=== PATIENT | female | born 1980 | race Caucasian/White ===

== ENCOUNTER 2016-02-28 12:40 | Emergency (ER) | payer OTHER ==
[2016-02-28 12:45] VITALS: BP 124/77
--- NOTE | 2016-02-28 15:19 | RAD ---
Indication: Frequent urination; fever. Comparison: None. Technique: Transvaginal pelvic ultrasound. Report: Unremarkable anteverted 6.7 x 2.6 x 4.9 cm uterus with 3.1 mm endometrium. Negative for significant free pelvic fluid. 2.7 x 1.4 x 2.3 cm RIGHT ovary with documented vascular flow is remarkable for small follicles only. 2.3 x 1.0 x 1.4 cm LEFT ovary with documented vascular flow is remarkable for small follicles only. No visualized extra ovarian adnexal region lesions evident. IMPRESSION: Negative pelvic ultrasound.
[2016-02-28 15:51] LABS: Urine Bacteria Absent (Absent); Urine Bilirubin Negative (Negative); Urine Glucose Negative (Negative); Urine Nitrite Negative (Negative)
[2016-02-28 16:21] LABS: Hematocrit 40 % (35-47); Hemoglobin 13.5 g/dl (12.0-16.0); Mean Corpuscular HGB Conc 34 g/dl (31-36); Mean Corpuscular Hemoglobin 29 pg (27-31); Mean Corpuscular Volume 87 fL (80-97); Mean Platelet Volume 9 um3 (7.4-10.4); Red Blood Count 4.61 10^6/ul (4.0-5.4); Red Cell Distribution Width 13 % (10.5-15); White Blood Count 7.4 10^3/ul (3.5-10.8)
[2016-02-28 16:34] LABS: ALT 8 U/L (7-52); AST 12 U/L (13-39); Albumin 3.9 g/dL (3.2-5.2); Alkaline Phosphatase 36 U/L (34-104); Anion Gap 5 mmol/L (2-11); Blood Urea Nitrogen 9 mg/dL (6-24); C Reactive Protein 11.64 mg/L (< 5.00); CO2 Carbon Dioxide 26 mmol/L (22-32); Calcium 9.1 mg/dL (8.6-10.3); Chloride 105 mmol/L (101-111); EGFR African American 123.8 (>60); EGFR Non-African American 96.3 (>60); Globulin 3.2 g/dL (2-4); Glucose 124 mg/dL (70-100); Potassium 3.5 mmol/L (3.5-5.0); Sodium 136 mmol/L (133-145); Total Protein 7.1 g/dL (6.4-8.9)
--- NOTE | 2016-02-28 17:50 | ED ---
Progress - Progress Note Progress Note: RX FOR CIPRO X 7 DAYS WRITTEN. RESULTS DISCUSSED WITH PATIENT. DX URINARY FREQUENCY. DISCHARGE HOME STABLE. - Results/Orders Results/Orders: Transvaginal US read by radiologist: IMPRESSION: Negative pelvic ultrasound. Course/Dx - Course Course Of Treatment: RESULTS DISCUSSED WITH PATIENT. RX FOR CIPRO X 7 DAYS WRITTEN. PT TO F/U WITH UROLOGY IN 1 WEEK. DISCHARGE HOME STABLE. - Diagnoses Provider Diagnoses: Urinary frequency
--- NOTE | 2016-02-29 10:28 | ED ---
Christofer Flaherty Adam, scribed for Alexx Carranza MD on 02/28/16 at 1410 . GI/ HPI - HPI Summary HPI Summary: Pt is a 35 year old female presenting with urgency and frequency of urination. She also c/o chills and low back pain. She states that she got a UTI over 1 month ago and was given Cipro by her PCP which improved her symptoms temporarily. She came to the ED because the symptoms have returned and have persisted. LMP was 2 months ago but she is on control and has had a recent negative test. She denies any discharge. - History of Current Complaint Chief Complaint: EDUrogenitalProblems Time Seen by Provider: 02/28/16 14:03 Stated Complaint: POSSIBLE UTI Hx Obtained From: Patient Onset/Duration: Started Weeks Ago, Atraumatic, Still Present Timing: Intermittent Severity: Moderate Current Severity: Moderate Pain Intensity: 1 Associated Signs and Symptoms: Positive: Back Pain, Chills, UTI Symptoms - Frequency, urgency Additional Signs & Symptoms: Negative: Vaginal Discharge Aggravating Factor(s): Nothing Alleviating Factor(s): Medication - Cipro PMH/Surg Hx/FS Hx/Imm Hx Infectious Disease History: No Infectious Disease History: Denies: Traveled Outside the [place] in Last 30 Days - Social History Occupation: Employed Full-time Lives: Alone Review of Systems Positive: Chills Positive: frequency, urgency Positive: Myalgia - Back All Other Systems Reviewed And Are Negative: Yes Physical Exam Triage Information Reviewed: Yes Vital Signs On Initial Exam: Initial Vitals Temp Pulse Resp BP Pulse Ox 97.8 F 72 16 124/77 100 02/28/16 12:43 02/28/16 12:43 02/28/16 12:43 02/28/16 12:43 02/28/16 12:43 Vital Signs Reviewed: Yes Appearance: Positive: Well-Appearing, No Pain Distress Skin: Positive: Warm, Skin Color Reflects Adequate Perfusion, Dry Head/Face: Positive: Normal Head/Face Inspection Eyes: Positive: Normal ENT: Positive: Normal ENT inspection Neck: Positive: Supple, Nontender Respiratory/Lung Sounds: Positive: Clear to Auscultation, Breath Sounds Present Cardiovascular: Positive: RRR Abdomen Description: Positive: Nontender, Soft Bowel Sounds: Positive: Present Musculoskeletal: Positive: Normal Neurological: Positive: Normal Psychiatric: Positive: Normal, Affect/Mood Appropriate Diagnostics - Vital Signs Vital Signs Temp Pulse Resp BP Pulse Ox 02/28/16 12:43 97.8 F 72 16 124/77 100 - Laboratory Lab Results: Lab Results 02/28/16 02/28/16 02/28/16 Range/Units 13:46 16:00 16:00 WBC 7.4 (3.5-10.8) 10^3/ul RBC 4.61 (4.0-5.4) 10^6/ul Hgb 13.5 (12.0-16.0) g/dl Hct 40 (35-47) % MCV 87 (80-97) fL MCH 29 (27-31) pg MCHC 34 (31-36) g/dl RDW 13 (10.5-15) % Plt Count 259 (150-450) 10^3/ul MPV 9 (7.4-10.4) um3 Neut % (Auto) 65.3 (38-83) % Lymph % (Auto) 28.4 (25-47) % [place] % (Auto) 5.4 (1-9) % Eos % (Auto) 0.6 (0-6) % Baso % (Auto) 0.3 (0-2) % Absolute Neuts (auto) 4.8 (1.5-7.7) 10^3/ul Absolute Lymphs (auto) 2.1 (1.0-4.8) 10^3/ul Absolute Monos (auto) 0.4 (0-0.8) 10^3/ul Absolute Eos (auto) 0 (0-0.6) 10^3/ul Absolute Basos (auto) 0 (0-0.2) 10^3/ul Absolute Nucleated RBC 0 10^3/ul Nucleated RBC % 0 Sodium 136 (133-145) mmol/L Potassium 3.5 (3.5-5.0) mmol/L Chloride 105 (101-111) mmol/L Carbon Dioxide 26 (22-32) mmol/L Anion Gap 5 (2-11) mmol/L BUN 9 (6-24) mg/dL Creatinine 0.69 (0.51-0.95) mg/dL Est GFR ( Amer) 123.8 (>60) Est GFR (Non-Af Amer) 96.3 (>60) BUN/Creatinine Ratio 13.0 (8-20) Glucose 124 H (70-100) mg/dL Calcium 9.1 (8.6-10.3) mg/dL Total Bilirubin 0.30 (0.2-1.0) mg/dL AST 12 L (13-39) U/L ALT 8 (7-52) U/L Alkaline Phosphatase 36 (34-104) U/L C-Reactive Protein 11.64 H (< 5.00) mg/L Total Protein 7.1 (6.4-8.9) g/dL Albumin 3.9 (3.2-5.2) g/dL Globulin 3.2 (2-4) g/dL Albumin/Globulin Ratio 1.2 (1-3) Beta HCG, Quant < 0.60 mIU/mL Urine Color Straw Urine Appearance Clear Urine pH 7.0 (5-9) Ur Specific [employer] 1.006 L (1.010-1.030) Urine Protein Negative (Negative) Urine Ketones Negative (Negative) Urine Blood Negative (Negative) Urine Nitrate Negative (Negative) Urine Bilirubin Negative (Negative) Urine Urobilinogen Negative (Negative) Ur Leukocyte Esterase 2+ H (Negative) Urine WBC (Auto) Trace(0-5/hpf) (Absent) Urine RBC (Auto) Trace(0-2/hpf) (Absent) Ur Squamous Epith Cells Present H (Absent) Urine Bacteria Absent (Absent) Urine Glucose Negative (Negative) Result Diagrams: 02/28/16 16:00 02/28/16 16:00 Lab Statement: Any lab studies that have been ordered have been reviewed, and results considered in the medical decision making process. GIGU Course/Dx - Course Course Of Treatment: She is stable at change of shift awaiting labs to help R/O pyelonephritis and U/S to R/O a mechanical reason for frequency and urgency without dysuria, vaginal D/C or other symptoms and with two negative urine C&S' s previously. - Diagnoses Provider Diagnoses: Urinary frequency Discharge - Discharge Plan Condition: Stable Disposition: HOME Prescriptions: Ciprofloxacin TAB* [Cipro Tab*] 500 mg PO BID #14 tab Referrals: Yesica Mccauley MD [Primary Care Provider] - Additional Instructions: FOLLOW UP WITH THE UROLOGIST SCHEDULED FOR YOUR URINARY FREQUENCY. FOLLOW UP WITH YOUR DOCTOR. RETURN TO THE EMERGENCY DEPARTMENT FOR ANY WORSENING OF YOUR CONDITION OR QUESTIONS OR CONCERNS. The documentation as recorded by the Christofer maynard Adam accurately reflects the service I personally performed and the decisions made by me, Alexx Carranza MD.
--- NOTE | 2016-02-29 10:28 | ED ---
Remy Flaherty Erika, scribed for Alexx Carranza MD on 02/28/16 at 1543 . Progress - Results/Orders Results/Orders: Transvaginal US read by radiologist: IMPRESSION: Negative pelvic ultrasound. Course/Dx - Diagnoses Provider Diagnoses: Urinary frequency The documentation as recorded by the Remy maynard Erika accurately reflects the service I personally performed and the decisions made by , Alexx Carranza MD.
== END 2016-02-28 19:08 | disposition home or self-care (01) ==
LOC: ED 12:40
DX: R35.0 Frequency of micturition (principal); M54.9 Dorsalgia, unspecified; R68.83 Chills (without fever)
CPT/HCPCS: 36415; 76830; 80053; 81003; 81015; 84702; 85025; 86140; 86703; 87086; 99282